=== PATIENT | female | born 1995 | race Caucasian/White ===

== ENCOUNTER 2018-12-03 21:16 | Observation (INO) | payer OTHER ==
[~2018-12-03] VITALS: Ht 160 cm; Wt 97.5 kg
[2018-12-03] MEDS ORDERED: NORMOSOL R SOLN(*) 1000 ML BAG 1,000 ML IV PRN (21:50)
[2018-12-03] MEDS ORDERED: MORPHINE 2 MG/ML SYR IVP PRN ×2 (21:50)
[2018-12-03 22:00] VITALS: BP 117/84
[2018-12-03] MEDS ORDERED: PIPERACILLIN/TAZO*3.375GM VIAL 0 GM ONE ×2 (22:44→22:45)
[2018-12-03] MEDS ORDERED: NS(*) 0.9% 100 ML ADDVANT BAG 0 ML ONE (22:45)
[2018-12-03] MEDS: NS(*) 0.9% 1000 ML BAG 1,000 ML IV PRN (22:52)
[2018-12-03] MEDS ORDERED: SERT-181 PO (23:18)
[2018-12-03] MEDS ORDERED: [UNRECOGNIZED DRUG - OTHER] PO (23:22)
[2018-12-03] MEDS ORDERED: NIAC500T85 PO (23:22)
[2018-12-03] MEDS ORDERED: BIOT10005 PO (23:23)
[2018-12-03] MEDS ORDERED: B2 PO (23:24)
[2018-12-03] MEDS ORDERED: Magnesium PO (23:25)
[2018-12-03] MEDS ORDERED: ASCO-182 PO (23:26)
[2018-12-03] MEDS ORDERED: MULT-947 PO (23:26)
[2018-12-04] VITALS (17 sets, daily range): BP systolic 98–131; BP diastolic 68–91; Ht 160 cm; Wt 97.5 kg
[2018-12-04] MEDS ORDERED: PIPERACILLIN/TAZO*3.375GM VIAL 3.375 GM in NS(*) 0.9% 100 ML ADDVANT BAG 100 ML IVPB SCH
[2018-12-04] MEDS: metroNIDAZOLE* 500MG/100ML BAG 100 ML IVPB SCH ×3 (00:50→17:39)
[2018-12-04] MEDS: ONDANSETRON 4 MG/2 ML VIAL IVP PRN ×2 (00:54→05:38)
[2018-12-04] MEDS: HYDROmorphone HCL 2 MG/ML SDV IVP PRN ×4 (00:54→08:04)
[2018-12-04] MEDS: LEVOFLOXACIN/D5W 750 MG/150 ML 150 ML IVPB SCH (02:10)
[2018-12-04] MEDS ORDERED: FAMOTIDINE 20 MG TAB PO ONE (06:00)
--- NOTE | 2018-12-04 07:53 | Gen Surgery History & Physical ---
History of Present Illness Chief Complaint abd pain History of Present Illness 23 yo f with abd pain since yesterday. it is lower abd pain. +vomiting last night (maybe due to abx). +diarrhea. no abd surgeries in the past. History Home Meds Reported Medications Multivit With Calcium,Iron,Min (WOMEN'S DAILY FORMULA) 1 Each Tablet, 1 EACH PO DAILY 12/03/18 Ascorbic Acid (VITAMIN C) 500 Mg Tablet, 1000 MG PO DAILY, TAB 12/03/18 [Magnesium] No Conflict Check, 500 MG PO DAILY 12/03/18 [B2] No Conflict Check, 500 MG PO DAILY 12/03/18 Biotin (Biotin) 10,000 Mcg Capsule, 1 PO DAILY 12/03/18 Niacin (NIACIN) 500 Mg Tablet, 500 MG PO QDAY 12/03/18 [Bilsovi FE] No Conflict Check, 1.5-30 MG PO DAILY 12/03/18 Sertraline Hcl (SERTRALINE HCL) 100 Mg Tablet, 1 TAB PO QDAY, TAB 12/03/18 Allergies: Coded Allergies: amoxicillin (Verified Allergy, Severe, Hives, 12/03/18) clavulanic acid (Verified Allergy, Severe, Hives, 12/03/18) morphine (Verified Allergy, Severe, RASH, 12/03/18) Redness/Itching above injection site. Patient History: FH: hypercholesterolemia FATHER FH: thyroid cancer MOTHER Tamra thyroiditis MOTHER Scleroderma MOTHER Review of Systems Constitutional: Other (10 pt ros neg except per hpi) Exam General Appearance: Alert, Awake, No Acute Distress Neuro: No Gross deficits Eyes: Other (per, eomi) ENT: Moist Mucous Membranes Neck: No Masses Cardiovascular: Other (reg rate) Respiratory: No Respiratory Distress GI: Other (soft, ttp saroj rlq, obese) Extremities: Other (scds) Integumentary: Skin Intact without Lesion / Mass Psych: Alert & Oriented X3, Appropriate Mood & Affect Assessment and Plan Problems: (1) Acute appendicitis Assessment & Plan: 12/04/18: npo, iv abx, lap appy today Venous Thromboembolism Antithrombotics Is Pt On Any Antithrombotics?: JUAN Toscano Dec 04, 2018 07:53
[2018-12-04] MEDS ORDERED: MIDAZOLAM 2 MG/2 ML VIAL ONE (08:33)
[2018-12-04] MEDS ORDERED: fentaNYL CITR 250 MCG/5 ML AMP ONE (08:33)
[2018-12-04] MEDS ORDERED: ONDANSETRON 4 MG/2 ML VIAL ONE (08:34)
[2018-12-04] MEDS ORDERED: DEXAMETHASONE SOD PHOS 10MG/ML ONE (08:34)
[2018-12-04] MEDS ORDERED: LIDOCAINE MPF 1% 5 ML VIAL ONE (08:34)
[2018-12-04] MEDS ORDERED: PROPOFOL EMUL(*) 10MG/ML 20 ML 20 ML ONE (08:34)
[2018-12-04] MEDS ORDERED: KETOROLAC 30 MG/ML VIAL ONE (08:35)
[2018-12-04] MEDS ORDERED: SUGAMMADEX SOD 200 MG/2 ML SDV ONE (08:35)
[2018-12-04] MEDS ORDERED: KETAMINE HCL 200 MG/20 ML MDV ONE (08:39)
[2018-12-04] MEDS ORDERED: HALOPERIDOL LACT 5 MG/ML VIAL IM ONE (08:47)
[2018-12-04] MEDS ORDERED: fentaNYL CITR 100 MCG/2 ML AMP ONE ×2 (09:53→11:01)
[2018-12-04] MEDS ORDERED: MEPERIDINE HCL 50 MG/ML SDV 50 MG/ML VIAL ONE (10:24)
[2018-12-04] MEDS ORDERED: ENOXAPARIN 40 MG/0.4ML SYR SC ONE ×2 (10:30→21:00)
--- NOTE | 2018-12-04 10:34 | Post Operative Progress Note ---
Post Operative Progress Note Date: Dec 04, 2018 Time: 10:28 Surgeon: dr. chelsy nguyen #[id number] Beekeeper Farmer: none Anesthesia: gen, local dr. lay Pre-Op Diagnosis: acute appendicitis Post-Op Diagnosis: same Findings: acute appendicitis Procedure(s): lap appy Specimen Removed:(May be N/A): appendix Complications: none Fluids: iv crystalloid Estimated Blood Loss: minimal Date OP Note Dictated: Dec 04, 2018 Time OP Note Dictated: 10:31 JUAN NGUYEN Dec 04, 2018 10:34
--- NOTE | 2018-12-04 11:08 | OPERATIVE REPORT 1 ---
EVENT DATE: December 04, 2018 SURGEON: Antione Camejo MD ANESTHESIOLOGIST: Teo Dubose MD ANESTHESIA: General and local. BRAND STRATEGY MANAGER: None. PREOPERATIVE DIAGNOSIS Acute appendicitis. POSTOPERATIVE DIAGNOSIS Acute appendicitis. PROCEDURE PERFORMED Laparoscopic appendectomy. FLUIDS IV crystalloids. ESTIMATED BLOOD LOSS Minimal. SPECIMENS Appendix. COMPLICATIONS None. INDICATIONS This is a 23-year old female with lower abdominal pain since yesterday. She did have nausea and vomiting. On physical exam, she was stable. She was tender to palpation, especially in the right lower quadrant. Imaging revealed findings consistent with acute appendicitis. Risks and benefits of the procedure were explained and consent was signed. DESCRIPTION OF PROCEDURE The patient was taken to the operating room and placed in the supine position. General anesthesia was administered per the Anesthesia team. Patient was prepped and draped in normal sterile fashion. Local analgesia was injected at the dermis above the umbilicus and a small vertical incision was made. The umbilical stump was grasped and elevated. I was unable to successfully insert the Veress needle. Therefore, I used OptiView technique to easily enter the abdomen at the left costal margin. Pneumoperitoneum was achieved. I then placed the 5 mm supraumbilical port under direct vision. I inspected the abdomen. There was no injury upon entry. After injecting with local analgesia under direct vision, I then placed a 5 mm suprapubic port and a 12 mm left lower quadrant port. There was some yellowish clear fluid in the abdomen. Prior to the end of the procedure, this was irrigated and suctioned. The appendix was quickly identified. It was very dilated. A window was created in the mesoappendix at the base of the appendix and the mesoappendix was divided with LigaSure. I then fired a laparoscopic 45 mm blue-load across the base of the appendix. I confirmed the staple line was intact. The appendix was removed with Endo-Catch bag through the left lower quadrant port site. There was a small amount of oozing from the staple line and, therefore, 5 mm clips were placed. Right lower quadrant was irrigated and suctioned. Irrigant returned clear. Hemostasis was assured. Fascia closure device with 0 Vicryl stitch was used to close the fascia of the left lower quadrant port site. Suprapubic port and left upper quadrant port were removed under direct vision. Hemostasis as assured. Pneumoperitoneal was relieved. Final port was removed. All skin incisions were closed with 4-0 Monocryl subcuticular stitches. More local analgesia was injected. Appropriate dressings were applied. The patient tolerated the procedure well without any known complications. SURINDER
[2018-12-04] MEDS: APAP/HYDROCODONE 325/7.5 TAB PO PRN ×3 (12:12→20:49)
[2018-12-04] MEDS: NS(*) 0.9% 1000 ML BAG 1,000 ML IV PRN (19:51)
[2018-12-05] MEDS: metroNIDAZOLE* 500MG/100ML BAG 100 ML IVPB SCH ×2 (01:04→08:56)
[2018-12-05 01:13] VITALS: BP 113/71
[2018-12-05] MEDS: LEVOFLOXACIN/D5W 750 MG/150 ML 150 ML IVPB SCH (02:10)
[2018-12-05] MEDS: APAP/HYDROCODONE 325/7.5 TAB PO PRN ×3 (03:52→12:16)
[2018-12-05 04:04] VITALS: BP 120/78
[2018-12-05] MEDS: NS(*) 0.9% 1000 ML BAG 1,000 ML IV PRN (06:14)
[2018-12-05 06:52] VITALS: BP 121/78
[2018-12-05] MEDS ORDERED: TRAM-420 PO (08:12)
--- NOTE | 2018-12-05 09:07 | General Surgery Progress Note ---
Subjective Progress Notes Subjective doing well. araseli clears. pain at [facility] Physical Exam Vital Signs Date Time Temp Pulse Resp B/P (MAP) Pulse Ox O2 Delivery O2 Flow Rate FiO2 12/05/18 09:02 96 12/05/18 08:05 Room Air 12/05/18 06:52 98.2 82 16 121/78 (92) 12/04/18 12:20 2.0 Intake and Output 12/05/18 06:59 Intake Total 5380 ml Balance 5380 ml Intake Oral 1130 ml IV Total 4250 ml # Voids 3 General Appearance: No Acute Distress GI: Other (abd soft) Assessment and Plan Problems: (1) Acute appendicitis Assessment & Plan: 12/04/18: npo, iv abx, lap appy today. 12/05/18: s/p lap appy. doing well. diet as araseli. home today. Exam Sepsis Risk: No Definite Risk JUAN CARLIN Dec 05, 2018 09:07
--- NOTE | 2018-12-05 09:10 | Hospitalist Depart ---
Discharge Summary Reason for Hosp/Final Diag: (1) Acute appendicitis Hospital Course & Plan: 12/04/18: npo, iv abx, lap appy today. 12/05/18: s/p lap appy. doing well. diet as araseli. home today. Departure Weight (Pounds): 215 Condition: Improved Discharge: Home Discharge Instructions Home Meds Active Scripts Tramadol Hcl (TRAMADOL HCL) 50 Mg Tablet, 50 MG PO Q4H PRN for PAIN, #30 TAB Prov:JUAN NGUYEN 12/05/18 Reported Medications Multivit With Calcium,Iron,Min (WOMEN'S DAILY FORMULA) 1 Each Tablet, 1 EACH PO DAILY 12/03/18 Ascorbic Acid (VITAMIN C) 500 Mg Tablet, 1000 MG PO DAILY, TAB 12/03/18 [Magnesium] No Conflict Check, 500 MG PO DAILY 12/03/18 [B2] No Conflict Check, 500 MG PO DAILY 12/03/18 Biotin (Biotin) 10,000 Mcg Capsule, 1 PO DAILY 12/03/18 Niacin (NIACIN) 500 Mg Tablet, 500 MG PO QDAY 12/03/18 [Bilsovi FE] No Conflict Check, 1.5-30 MG PO DAILY 12/03/18 Sertraline Hcl (SERTRALINE HCL) 100 Mg Tablet, 1 TAB PO QDAY, TAB 12/03/18 Diet: Regular Activity: No Heavy Lifting Special Instructions: ok to return to school 12/13/18. no lifting more than 15 lbs for 3 wks. take stool softener while taking pain meds. follow up dr. kendra nguyen 2 wks ([phone]). Venous Thromboembolism Antithrombotics Is Pt On Any Antithrombotics?: JUAN Toscano Dec 05, 2018 09:10
[2018-12-05 11:39] VITALS: BP 136/91
== END 2018-12-05 09:28 | disposition home or self-care (01) ==
LOC: MED 21:22 → INTOOBSV 21:22
PROVIDERS: ADMIT Surgery; ATTEND Surgery
DX: K35.80 Unspecified acute appendicitis (principal)
CPT/HCPCS: 44970; 88304; 96372; G0378; G0379; J1100; J1170; J1630; J1650; J1885; J1956; J2001; J2175; J2250; J2270; J2405; J2704; J3010; J3490; J7030

== ENCOUNTER → 2018-12-03 | Outpatient (CLI) | payer OTHER ==
[~2018-12-03] MED LIST: ASCO-182 PO; B2 PO; BIOT10005 PO; IOPAMIDOL 61% 100 ML INFUS BTL 100 ML ONE; MULT-947 PO; Magnesium PO; NIAC500T85 PO; SERT-181 PO; TRAM-420 PO; [UNRECOGNIZED DRUG - OTHER] PO
--- NOTE | 2018-12-03 20:52 | RADIOLOGY IMAGING REPORT ---
[place] [facility] [place]: Micky López : 1995 MR: [id number] V: [id number] EXAM DATE: ORDERING PHYSICIAN: BEA ORTEGA TECHNOLOGIST: Location: [facility] - [place], [place] Patient: Micky López : 1995 Visit/Account:[id number] Date of Sevice: 12/03/2018 CT abdomen and pelvis with IV contrast Indication: Abdominal pain for one day. Comparison: None available. . Technique: Axial CT images were obtained through the abdomen and pelvis during injection of nonioni c iodinated intravenous contrast. Reformatted coronal and sagittal images were also obtained. One of the following dose optimization techniques was utilized in the performance of this exam: Autom ated exposure control; adjustment of the mA and/or kV according to the patient's size; or use of an i terative reconstruction technique. Specific details can be referenced in the facility's radiology C T exam operational policy. Contrast: 75 ml of Isovue-370 IV contrast. Findings: Lower lung wiggins: Limited views lower lung field are unremarkable. Liver: No focal parenchymal abnormality of the liver. Biliary: Gallbladder appears unremarkable as well as the intra and extra hepatic biliary system. Pancreas: Normal appearance. Spleen: Normal appearance. Adrenal glands: Unremarkable. Kidneys / retroperitoneum: No evidence of nephrolithiasis or hydronephrosis. Subcentimeter hypodensit y in the right kidney is too small characterize and statistically tiny cyst. No other focal abnormali ty of the kidneys. Bowel / peritoneum / mesenteries: Colon shows no focal abnormality. The appendix is dilated up to 2.2 cm with at least 3 appendicoliths present within the appendix. The largest appendicolith is at the p roximal aspect measuring 1.5 cm. There is mild inflammatory change at June the appendix. No wall thickening. No fluid collections or perforation. Small bowel shows no focal abnormality or obstructi on. The stomach is unremarkable. No free air, fluid collections or areas of inflammation. Tiny bit of free fluid in the pelvis is like ly physiologic. Tiny umbilical hernia containing fat. Lymph node assessment: No pathologic adenopathy identified. Pelvic structures: Pelvic structures visualized within normal limits. Vessels: No significant atherosclerotic calcifications seen throughout a nonaneurysmal abdominal aort a and branches. Musculoskeletal / Body wall: No acute or aggressive osseous abnormality. IMPRESSION: 1. The appendix is abnormal and significantly dilated up to 2.2 cm. There are at least 3 appendicolit hs within the appendix the largest is at the very proximal aspect measuring 1.5 cm and could be causi ng obstruction. There is mild inflammatory change seen at the distal appendix suggesting early append icitis. No fluid collections or perforation. I called report to BEA ORTEGA at 12/03/2018 8:47 PM. Report Dictated By: Skip Reina at 12/03/2018 8:33 PM Report E-Signed By: Skip Reina at 12/03/2018 8:49 PM WSN:[id number]
== END ==
LOC: CT 18:15
PROVIDERS: ATTEND Nurse Practitioner Family
DX: K38.8 Other specified diseases of appendix (principal)
CPT/HCPCS: 74177; Q9967

== ENCOUNTER → 2018-12-03 | Outpatient (REF) | payer OTHER ==
[~2018-12-03] MED LIST changes: -IOPAMIDOL 61% 100 ML INFUS BTL 100 ML ONE
[2018-12-03 17:17] LABS: PLATELET COUNT, AUTOMATED 388 K/uL (150-450)
== END ==
PROVIDERS: ATTEND Nurse Practitioner Family
DX: R10.9 Unspecified abdominal pain (principal)
CPT/HCPCS: 82040; 82150; 82247; 82310; 82374; 82435; 82565; 82947; 83690; 84075; 84132; 84155; 84295; 84450; 84460; 84520; 85025

== ENCOUNTER 2018-12-07 11:08 | Emergency (ER) | payer OTHER ==
[2018-12-04 08:33] VITALS: BMI 38.1
[2018-12-07] MEDS ORDERED: KETAMINE HCL 500 MG/5 ML VIAL ONE (11:21)
[2018-12-07] MEDS ORDERED: fentaNYL CITR 100 MCG/2 ML AMP ONE (11:22)
[2018-12-07] MEDS ORDERED: EPINEPHrine INJ 1 MG/10 ML SYR 1 MG in NS(*) 0.9% 250 ML BAG 240 ML IV ONE (11:30)
[2018-12-07] MEDS ORDERED: LORazepam 2 MG/ML VIAL ONE (11:55)
[2018-12-07] MEDS ORDERED: IMIPENEM/CILASTA(*) 500MG VIAL 1,000 MG in NS(*) 0.9% 250 ML BAG 250 ML IVPB ONE (12:00)
[2018-12-07 12:12] LABS: PLATELET COUNT, AUTOMATED 215 K/uL (150-450)
--- NOTE | 2018-12-07 12:29 | ER Report ---
History and Physical Time Seen By MD: 11:08 HPI/ROS CHIEF COMPLAINT: Severe shortness of breath HISTORY OF PRESENT ILLNESS: This is a 23-year-old female. She called EMS for severe shortness of breath. Sudden onset this morning. She is 2 days out from appendectomy here at the hospital. As the ambulance was arriving in the ambulance pain, she appeared to have convulsions or seizures and then had loss of pulse and breathing, CPR was started. Per report of EMS and the boyfriend, there does not appear to have been any overuse of medications. 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 Boyfriend does note that she has had a little bit of vaginal bleeding the last few days as well. On review of her charting, appears uncomplicated appendectomy, one dose of Lovenox after the surgery. Tramadol for pain. REVIEW OF SYSTEMS: Unable to obtain Allergies: Coded Allergies: amoxicillin (Verified Allergy, Severe, Hives, 12/03/18) clavulanic acid (Verified Allergy, Severe, Hives, 12/03/18) morphine (Verified Allergy, Severe, RASH, 12/03/18) Redness/Itching above injection site. Home Meds Active Scripts Tramadol Hcl (TRAMADOL HCL) 50 Mg Tablet, 50 MG PO Q4H PRN for PAIN, #30 TAB Prov:JUAN CARLIN 12/05/18 Reported Medications Multivit With Calcium,Iron,Min (WOMEN'S DAILY FORMULA) 1 Each Tablet, 1 EACH PO DAILY 12/03/18 Ascorbic Acid (VITAMIN C) 500 Mg Tablet, 1000 MG PO DAILY, TAB 12/03/18 [Magnesium] No Conflict Check, 500 MG PO DAILY 12/03/18 [B2] No Conflict Check, 500 MG PO DAILY 12/03/18 Biotin (Biotin) 10,000 Mcg Capsule, 1 PO DAILY 12/03/18 Niacin (NIACIN) 500 Mg Tablet, 500 MG PO QDAY 12/03/18 [Bilsovi FE] No Conflict Check, 1.5-30 MG PO DAILY 12/03/18 Sertraline Hcl (SERTRALINE HCL) 100 Mg Tablet, 1 TAB PO QDAY, TAB 12/03/18 Hx Smoking: No Physical Exam Initial evaluation: General Appearance: The patient is not alert to verbal or tactile stimuli. Totally unresponsive. Dusky and cool skin. Eyes: Pupils are reactive to light. Equal and round. ENT: Mucous membranes are moist. Normal oral mucosa. Respiratory: Agonal respirations, not adequate. Cardiovascular: Tachycardia but no pulse. Gastrointestinal: Abdomen is soft, surgical incisions appear normal. Nondistended. Genitourinary: Has some vaginal bleeding, does not appear to be a heavy amount at this time. Neurological: No spontaneous movements initially. Skin: Cool and dusky in appearance, poor capillary refill in extremities. Musculoskeletal: No signs of trauma or deformity. DIFFERENTIAL DIAGNOSIS: After history and physical exam, differential diagnosis was considered for cardiopulmonary arrest of uncertain etiology. Medical Decision Making Data Points Result Diagram: 12/07/18 1136 12/07/18 1136 Laboratory Hematology Test 12/07/18 11:36 Red Blood Count 4.88 M/uL (4.17-5.56) Mean Corpuscular Volume 97.3 fL (80.0-96.0) Mean Corpuscular Hemoglobin 29.0 pg (26.0-33.0) Mean Corpuscular Hemoglobin Concent 29.8 g/dL (32.0-36.0) Red Cell Distribution Width 15.2 % (11.5-14.5) Mean Platelet Volume 9.1 fL (7.2-11.1) Neutrophils (%) (Auto) % (39.4-72.5) Lymphocytes (%) (Auto) % (17.6-49.6) Monocytes (%) (Auto) % (4.1-12.4) Eosinophils (%) (Auto) % (0.4-6.7) Basophils (%) (Auto) % (0.3-1.4) Nucleated RBC Relative Count (auto) /100WBC Neutrophils # (Auto) K/uL (2.0-7.4) Lymphocytes # (Auto) K/uL (1.3-3.6) Monocytes # (Auto) K/uL (0.3-1.0) Eosinophils # (Auto) K/uL (0.0-0.5) Basophils # (Auto) K/uL (0.0-0.1) Nucleated RBC Absolute Count (auto) K/uL Neutrophils % (Manual) 31 % (39.4-72.5) Band Neutrophils % 5 % Lymphocytes % (Manual) 45 % (17.6-49.6) Atypical Lymphocytes % 13 % Monocytes % (Manual) 6 % (4.1-12.4) Eosinophils % (Manual) 0 % (0.4-6.7) Basophils % (Manual) 0 % (0.3-1.4) Platelet Estimate Normal Peripheral Blood Smear Yes Y/N Sodium Level 142 mmol/L (137-145) Potassium Level 4.0 mmol/L (3.5-5.0) Chloride Level 105 mmol/L (98-107) Carbon Dioxide Level 10 mmol/L (22-31) Blood Urea Nitrogen 8 mg/dl (7-18) Creatinine 1.30 mg/dl (0.52-1.04) Glomerular Filtration Rate Calc 50.8 Random Glucose 385 mg/dl (75-110) Lactate 20.4 mmol/L (0.7-2.1) Calcium Level 9.0 mg/dl (8.4-10.2) Total Bilirubin 0.7 mg/dl (0.2-1.3) Aspartate Amino Transf (AST/SGOT) 383 U/L (0-35) Alanine Aminotransferase (ALT/SGPT) 369 U/L (0-56) Alkaline Phosphatase 56 U/L (0-126) Total Protein 6.4 g/dl (6.3-8.2) Albumin 3.6 g/dl (3.5-5.0) Chemistry Test 12/07/18 11:36 White Blood Count 15.0 k/uL (4.5-11.0) Red Blood Count 4.88 M/uL (4.17-5.56) Hemoglobin 14.2 g/dL (12.0-16.0) Hematocrit 47.5 % (34.0-47.0) Mean Corpuscular Volume 97.3 fL (80.0-96.0) Mean Corpuscular Hemoglobin 29.0 pg (26.0-33.0) Mean Corpuscular Hemoglobin Concent 29.8 g/dL (32.0-36.0) Red Cell Distribution Width 15.2 % (11.5-14.5) Platelet Count 215 K/uL (150-450) Mean Platelet Volume 9.1 fL (7.2-11.1) Neutrophils (%) (Auto) % (39.4-72.5) Lymphocytes (%) (Auto) % (17.6-49.6) Monocytes (%) (Auto) % (4.1-12.4) Eosinophils (%) (Auto) % (0.4-6.7) Basophils (%) (Auto) % (0.3-1.4) Nucleated RBC Relative Count (auto) /100WBC Neutrophils # (Auto) K/uL (2.0-7.4) Lymphocytes # (Auto) K/uL (1.3-3.6) Monocytes # (Auto) K/uL (0.3-1.0) Eosinophils # (Auto) K/uL (0.0-0.5) Basophils # (Auto) K/uL (0.0-0.1) Nucleated RBC Absolute Count (auto) K/uL Neutrophils % (Manual) 31 % (39.4-72.5) Band Neutrophils % 5 % Lymphocytes % (Manual) 45 % (17.6-49.6) Atypical Lymphocytes % 13 % Monocytes % (Manual) 6 % (4.1-12.4) Eosinophils % (Manual) 0 % (0.4-6.7) Basophils % (Manual) 0 % (0.3-1.4) Platelet Estimate Normal Peripheral Blood Smear Yes Y/N Glomerular Filtration Rate Calc 50.8 Lactate 20.4 mmol/L (0.7-2.1) Calcium Level 9.0 mg/dl (8.4-10.2) Total Bilirubin 0.7 mg/dl (0.2-1.3) Aspartate Amino Transf (AST/SGOT) 383 U/L (0-35) Alanine Aminotransferase (ALT/SGPT) 369 U/L (0-56) Alkaline Phosphatase 56 U/L (0-126) Total Protein 6.4 g/dl (6.3-8.2) Albumin 3.6 g/dl (3.5-5.0) Microbiology Microbiology Date/Time Source Procedure Growth Status 12/07/18 11:36 Blood Blood Culture - Preliminary NO GROWTH AFTER 4 DAYS, REINCUBATED Resulted ED Course/Re-evaluation Clinical Indication for ER IV: Hydration, IV Access (IO left tibia, peripheral IV left forearm, then right femoral central line.) ED Course Code called on arrival. EMS gave history while transferring to our monitor. Compressions by staff initially until Pravin was available. Unable to get IV initially, so IO placed, IV obtained in left arm shortly after. Fluids started on both of these sites. Epinephrine given as boluses per ACLS protocols. [id number] ventilations with oral airway were adequate. After several round of CPR, the patient started to have some posturing of her hands and grunting. On rhythm check, the patient had electrical activity, but no pulse. Continued compressions. Appeared to be in pain and more movement of arms, face and head. Next check was still electrical activity without a pulse. Compressions continued, more movement and appeared to trying to look around, and on check on pulse in the middle of this round, she did have a pulse. Narrow complex tachycardia at this point. She seemed aware of what was going on, in pain, was able to follow simple commands. Pulse quickly slowed down until again was asystole, and CPR again started. We thought about doing atropine, but the deceleration to asystole was so quick, we resumed the asystole protocol.. I placed a central line in the right femoral while CPR continued with boluses of Epinephrine, and an epinephrine drip was ordered and rapid titration up. After line was placed, further fluids were given. Patient regained a pulse, but lost it with a slower drop. At this point, with bradycardia, added Atropine, but ineffective. CPR resumed. I ordered Primaxin 1000mg IV and Vancomycin 1000mg IV as part of the differential was sepsis and infection from surgery. Also ordered Ativan 2mg IV and Ketamine 100mg IV to help with seizure and sedation prior to attempting intubation. Patient severe clenching of her jaw with intubation attempt, so also gave Etomidate and Succinylcholine. Intubated. From this point on had continued CPR with either Asystole or PEA, no improvement. Remained at this level. Bedside ultrasound was done and no spontaneous movement of the heart. IVC did not look to show any cardiac return. Discussed the situation with the patient's boyfriend and attempted to call her parent's who were driving from [place], but unable to get ahold of them. Labs worsening, situation worsening with no signs of improvement whatsoever, and felt continued resuscitation was futile at this time, so the code was called. Time of called at 1225. Patient parents arrived and I did talk to the about what we did and the outcome. Further powerhouse helper evaluation pending. My suspicion is that she likely had a massive PE given the sudden onset of shortness of breath. Seizure may have been anoxic. Failure of response to resucitaiton could be explained by a PE. Also considered overwhelming sepsis. Did not appear to be status epilepticus, but considered this as well. Less likely would be a massive cardiac event, but at her age would be unlikely. Hemorrhage with blood loss possible as well, no response to the fluid boluses as would expect. Decision to Disposition Date: Dec 07, 2018 Decision to Disposition Time: 12:25 Critical Care Time I spent a total of 85 minutes of critical care time in obtaining history, performing a physical exam, bedside monitoring of interventions, collecting and interpreting tests and discussion with consultants but not including time spent performing procedures. Depart Departure Impression: Primary Impression: Cardiopulmonary arrest Condition: Disposition: ESDRAS JONES MD Dec 07, 2018 12:28
[2018-12-07] MEDS ORDERED: SUCCINYLCHOL CHL 200MG/10ML VL IVP ONE (12:40)
[2018-12-07] MEDS ORDERED: ETOMIDATE 20 MG/10 ML VIAL IVP ONE (12:40)
[2018-12-07] MEDS ORDERED: fentaNYL CITR 100 MCG/2 ML AMP IVP ONE (12:40)
[2018-12-07] MEDS ORDERED: KETAMINE HCL 500 MG/5 ML VIAL IVP ONE (12:40)
[2018-12-07] MEDS ORDERED: LORazepam 2 MG/ML VIAL IVP ONE (12:45)
[2018-12-07] MEDS ORDERED: VANCOMYCIN 1 GM ADDVIAL 1 GM in NS(*) 0.9% 250 ML ADDVAN BAG 250 ML IVPB ONE (13:00)
== END 2018-12-07 13:00 | disposition expired ==
LOC: ER 12:32
DX: I46.9 Cardiac arrest, cause unspecified (principal)
CPT/HCPCS: 31500; 36415; 36556; 83605; 85025; 87040; 92950; 96365; 96375; 99291; 99292; J0171; J0330; J0461; J0743; J2060; J2310; J3010; J3370; J3490; J7050; 82040; 82247; 82310; 82374; 82435; 82565; 82947; 84075; 84132; 84155; 84295; 84450; 84460; 84520; 92960

== ENCOUNTER → 2018-12-07 | Outpatient (CLI) | payer OTHER ==
[2018-12-04 08:33] VITALS: BMI 38.1
== END ==
LOC: AMB 10:48
PROVIDERS: ATTEND Nurse Practitioner
DX: R06.00 Dyspnea, unspecified (principal); R57.9 Shock, unspecified; R00.0 Tachycardia, unspecified; I95.9 Hypotension, unspecified
CPT/HCPCS: A0425; A0427